=== PATIENT | female | born 1960 | race Caucasian/White ===

== ENCOUNTER 2023-05-18 11:18 | Observation (INO) | payer OTHER, SELFPAY ==
[2023-05-18] VITALS (38 sets, daily range): BP systolic 114–201; BP diastolic 64–110; PULSE 47–105; RESP 11–28; TEMP 36.1–36.8; O2SAT 92–100; BMI 23.4
--- NOTE | ~2023-05-18 | CT_ITS ---
EXAMINATION: CT abdomen pelvis w con DATE: 05/18/2023 14:37 INDICATION: Epigastric pain TECHNIQUE: Computed tomography (CT) of the abdomen and pelvis was performed with 100 mL Omnipaque-350 intravenous contrast. Automated exposure control and iterative reconstruction technique were employe d. The dose-length product was 316.51 mGy-cm. COMPARISON: None FINDINGS: Mild discoid atelectasis at the lingula and bilateral lower lobes. Heart size is normal. No pericardi al or pleural effusion. Small sliding-type hiatal hernia. Liver, gallbladder, spleen, pancreas, bilat eral adrenal glands and kidneys are normal. The appendix is mildly dilated with the fluid filled mid to distal appendix measuring up to 11 mm in maximal diameter with a tiny calcified appendicolith in t he more proximal appendix. There is subtle stranding in the periappendiceal fat suspicious for early acute appendicitis. There are few diverticula along the sigmoid colon without adjacent comparison to suggest diverticulitis. No bowel obstruction. Bladder, uterus and bilateral adnexa are unremarkable. No abscess or free intraperitoneal gas or fluid. Transitional thoracolumbar and lumbosacral segments with moderate lumbar spondylosis. Mild thoracolumbar levocurvature and lumbar dextrocurvature. IMPRESSION: 1. . Suspicious for acute appendicitis. Reviewed, dictated and finalized at location A.
[2023-05-18] MEDS: SODIUM CHLORIDE 0.9% IV 1,000 ML 999 ML IV CONT (12:25)
[2023-05-18] MEDS: ONDANSETRON INJ 4 MG/2 ML VIAL IV PUSH (12:26)
[2023-05-18] MEDS: Please add drug allergy info to patient profile. 1 EACH XX (12:26)
[2023-05-18] MEDS: MORPHINE SULFATE (*CRX) 4 MG/ML INJ IV PUSH (12:26)
[2023-05-18 12:57] LABS: Basophils Absolute Auto 0.1 K/mm3 (0.0-0.1); Basophils Percent Auto 0.3 % (0.2-1.2); Eosinophils Percent Auto 0.1 % (0-4.4); Hematocrit 51.6 % (37.0-47.0); Hemoglobin 16.9 g/dL (12.0-15.0); Immature Granulocyte Absolute 0.11 K/mm3 (0.00-0.031); Immature Granulocyte Percent A 0.6 % (0-0.5); Immature Platelet Fraction Pct 6.7 % (0.9-11.2); Lymphocytes Absolute Auto 1.12 K/mm3 (0.9-3.2); Lymphocytes Percent Auto 6.1 % (18.3-44.2); Mean Corpuscular HGB Conc 32.8 g/dl (32-36); Mean Corpuscular Hemoglobin 31.1 pg (26-34); Mean Platelet Volume 10.1 fl (7.4-10.4); Monocytes Absolute Auto 0.9 K/mm3 (0.1-0.6); Neutrophils Absolute Auto 16.3 K/mm3 (1.3-6.7); Neutrophils Percent Auto 87.9 % (45.5-73.1); Platelet Count Result 216 k/mm3 (150-375); Red Blood Count 5.43 M/mm3 (4.2-5.4); Red Cell Distribution Width 13.8 % (11.5-14.5); White Blood Count 18.5 K/mm3 (4.5-10.0)
[2023-05-18 13:48] LABS: Alanine Aminotransferase 34 U/L (6-35); Albumin Level 4.7 g/dL (3.5-5.1); Alkaline Phosphatase 135 U/L (38-126); Anion Gap 10 mmol/L (8-16); Aspartate Amino Transferase 41 U/L (14-36); Bilirubin,Total 0.6 mg/dL (0.2-1.3); Blood Urea Nitrogen 11 mg/dL (7-17); Calcium 9.1 mg/dL (8.4-10.2); Carbon Dioxide 21 mmol/L (22-30); Chloride 109 mmol/L (98-107); Estimated CRCL calculation 78 ml/min; Estimated Glomerular Filt Rate > 60; Glucose 121 mg/dL (65-110); Lipase 62 U/L (23-300); Potassium 3.3 mmol/L (3.4-5.0); Sodium 140 mmol/L (137-145)
[2023-05-18] MEDS: PROMETHAZINE HCL 25 MG/ML AMPUL 12.5 MG IV PUSH (13:52)
--- NOTE | 2023-05-18 14:04 | ED.GENADULT ---
HPI - General Adult General Chief complaint: Nausea/Vomiting/Diarrhea Stated complaint: N/V/D X1D Time Seen by Provider: 05/18/23 11:23 History of Present Illness HPI narrative: Patient is a 63-year-old female who presents ER with nausea and vomiting. Ongoing for 2 days. Associate with diarrhea beginning today. No known sick contacts. Patient has no antiemetics at home. Denies fevers or chills. No blood in emesis. Patient currently traveling from out of state. Related Data Home Medications Medication Instructions Recorded Confirmed atorvastatin 10 mg tablet 10 mg PO DAILY 05/18/23 05/18/23 levothyroxine 50 mcg tablet 50 mcg PO DAILY 05/18/23 05/18/23 losartan 50 mg tablet 50 mg PO DAILY 05/18/23 05/18/23 Allergies Allergy/AdvReac Type Severity Reaction Status Date / Time No Known Allergies Allergy Verified 05/18/23 16:38 Review of Systems Review of Systems: All systems reviewed & are unremarkable except as noted in HPI and below Constitutional: Constitutional: Denies chills, Reports fatigue and Denies fever(s) Cardiovascular: Cardiovascular: Denies chest pain, Denies rapid heart rate and Denies radiating jaw, neck or arm pain Respiratory: Respiratory: Denies cough and Denies dyspnea Gastrointestinal: Gastrointestinal: Reports abdominal pain, Reports diarrhea, Reports nausea and Reports vomiting Genitourinary: Genitourinary: Denies nocturia and Denies dysuria PMFSH Past Medical History Medical History (Updated 05/18/23 @ 19:26 by Song Jaramillo MD) Hyperlipidemia Hypertension Hypothyroidism BOBBY (obstructive sleep apnea) Social History Social History (Updated 05/18/23 @ 16:40 by Galen Gustafson DO) Smoking status: Former smoker Smoking end date: 05/18/23 Alcohol intake: current Alcohol use details: 4/ day Substance use type: marijuana Other substance usage details: daily Last use: 05/18/23 Exam Narrative: GENERAL: Uncomfortable-appearing, well-nourished, and in actively vomiting. HEAD: Normocephalic, atraumatic. EYES: PERRL and EOMI. ENT: Mucous membranes moist. NECK: Supple. CHEST: Clear to auscultation. No respiratory distress. HEART: Regular rate and rhythm. Normal peripheral pulses. ABDOMEN: Soft, nontender, nondistended. EXTREMITIES: Normal range of motion. No edema. SKIN: Warm, dry, no rash. NEURO: Alert and oriented x3. PSYCH: Normal mood and affect. Course Course Emergency Course: Patient found to have appendicitis. Discussed with patient family urgency of this matter. They were concerned because she is from out of state and that her insurance may not be good here. Discussed that she has medical event that requires emergent surgery and General surgery has been consulted, failure to treat this could result in significant decline in patient's health. The surgeon who recommends surgical removal of the appendix today. Patient will be started on IV antibiotics and she will go to the OR. Vital Signs Vital signs: Vital Signs Pulse Rate 50 L 05/18/23 11:20 Respiratory Rate 16 05/18/23 11:20 Blood Pressure 172/88 H 05/18/23 11:20 Pulse Oximetry 100 05/18/23 11:20 Oxygen Delivery Room Air 05/18/23 11:20 Temperature 97.7 F 05/18/23 17:44 Pulse Rate 79 05/18/23 19:10 Respiratory Rate 18 05/18/23 19:10 Blood Pressure 114/75 05/18/23 19:10 Pulse Oximetry 96 05/18/23 19:10 Oxygen Delivery Room Air 05/18/23 19:10 Oxygen Flow Rate 8 05/18/23 18:10 Medical Decision Making Vital Signs Vital Signs: Vital Signs Pulse Rate 50 L 05/18/23 11:20 Respiratory Rate 16 05/18/23 11:20 Blood Pressure 172/88 H 05/18/23 11:20 Pulse Oximetry 100 05/18/23 11:20 Oxygen Delivery Room Air 05/18/23 11:20 Temperature 97.7 F 05/18/23 17:44 Pulse Rate 79 05/18/23 19:10 Respiratory Rate 18 05/18/23 19:10 Blood Pressure 114/75 05/18/23 19:10 Pulse Oximetry 96 05/18/23 19:10 Oxygen
[2023-05-18 14:25] LABS: Appearance Urine Clear (Clear); Bacteria Urine None Seen /hpf; Bilirubin Urine Negative (Negative); Blood Urine Negative (Negative); Color Urine Yellow (Yellow); Glucose Urine UA Negative (Negative); Ketones Urine 3+ mg/dL (Negative); Leukocyte Esterase Ur 1+ LEU/UL (Negative); Need Manual Microscopic Reviewed; Nitrate Urine Negative (Negative); Non Pathogenic Casts 0-2; Protein Urine Negative (Negative); RBC Urine 0-2 /hpf (0-2); Specific Grav Ur 1.019 (1.001-1.035); Squamous Epithelial Cell Urine None seen /hpf (Few); Urobilinogen Urine 0.2 mg/dL (<2.0); WBC Urine 0-5 /hpf; pH Urine 5.5 (5.0-9.0)
[2023-05-18 14:26] LABS: Add Urine Microscopic? YES
--- NOTE | 2023-05-18 15:26 | PM.SD2 ---
Same Day Admit/Disch: HPI History of Present Illness Chief complaint: Nausea and vomiting Narrative: Silvina Stewart is a 63 year old female who came to the emergency room with a 2 day history of nausea and vomiting. She was noted initially to have diffuse abdominal tenderness and a white blood cell count of over 18,000. She was given some antiemetics and IV fluids. She then was felt to have right lower quadrant tenderness. She had a CT scan of the abdomen and pelvis that shows early acute appendicitis. She is taken to surgery now for laparoscopic appendectomy. Also no worthy is that the patient and her actually live in [place] but they spend quite a bit of time in this area because [place] is the patient's home town. They currently are living in a camper in a [place] near [place]. [facility] Past Medical History Medical History (Updated 05/18/23 @ 19:26 by Song Jaramillo MD) Hyperlipidemia Hypertension Hypothyroidism BOBBY (obstructive sleep apnea) Social History Social History (Updated 05/18/23 @ 16:40 by Galen Gustafson DO) Smoking status: Former smoker Smoking end date: 05/18/23 Alcohol intake: current Alcohol use details: Substance use: current Substance use type: marijuana Other substance usage details: daily Last use: 05/18/23 Living arrangements: with family Spiritual care concerns: No Same Day Admit/Disch: Med Pre-admit Medications Home Medications Medication Instructions Recorded Confirmed Type atorvastatin 10 mg tablet 10 mg PO DAILY 05/18/23 05/18/23 History levothyroxine 50 mcg tablet 50 mcg PO DAILY 05/18/23 05/18/23 History losartan 50 mg tablet 50 mg PO DAILY 05/18/23 05/18/23 History Review of Systems Review of Systems All systems reviewed & are unremarkable except as noted in HPI and below (HPI and those items noted below) Constitutional Constitutional: Denies chills and Denies fever(s) Cardiovascular Cardiovascular: Denies chest pain, Denies diaphoresis, Denies dyspnea and Denies paroxysmal nocturnal dyspnea Respiratory Respiratory: Denies chest congestion, Denies cough and Denies dyspnea Integumentary/Breasts Skin/Breast: Denies lesions and Denies rash Exam Const: General: no acute distress, alert, awake, tired appearing, uncomfortable and well nourished Orientation/consciousness: No confusion HENMT: Head: normocephalic and atraumatic Mouth: Yes Normal oral and palatal mucosa present Eyes: Conjunctivae: conjunctivae normal Pupils: Equal, round and reactive pupils present EOM: EOMs intact bilaterally Neck: Neck: normal visual inspection, no lymphadenopathy and nontender Resp: Effort & Inspection: normal respiratory effort Auscultation: clear to auscultation bilaterally Cardio: Rate: regular rate Rhythm: regular rhythm Heart sounds: no gallops, no murmurs and no rubs GI: Inspection: normal to inspection, non-distended, scaphoid and no visible herniation GI Palp: Yes abdominal tenderness (Right lower quadrant), Yes Soft to palpation, Yes Tenderness to palpation present (GI), Yes Guarding due to palpation present (GI), No Hepatomegaly present, No Splenomegaly present, No Hernia present, No Palpable mass present and No Ascites present Skin: Lesions: no lesions Rashes: no rashes Neuro: General: no focal motor deficits and CN's II-XI intact bilaterally Cranial nerves: Yes Equal, round and reactive pupils present, Yes Bilaterally intact EOM present, Yes facial symmetry and Yes Midline tongue present Speech: normal speech Motor exam (neuro): 5/5 motor strength present throughout and Motor abnormalities not present Extrem: General: no clubbing, cyanosis or edema and edema Psych: Affect: normal affect Thought process: Normal thought process present Insight: Good insight present (Psych) DS: Data Data Completed and Pending Labs on day of discharge: Labs from last 24 hours 05/18/23 05/18/23 05/18/23 13:47 13:32 12:43 WBC
[2023-05-18] MEDS: PIPERACILLN/TAZ 3.375GM/NS50ML 3.375 GM/50 ML BAG IVPB (16:13)
[2023-05-18] MEDS: LACTATED RINGERS 1,000 ML 30 ML IV CONT ×2 (16:30→17:44)
--- NOTE | 2023-05-18 16:38 | WPDANESEPPF ---
Anes - Initial Pre Proc Eval Procedure: Operation Date: 05/18/23 16:00 Proposed Procedures p Laparoscopic Appendectomy - Tito Gabriel MD Date/Time: 05/18/23 16:38 Surgeon: Tito Gabriel MD Pre Op Diagnosis: Nausea and vomiting Patient Data Age: 63 Gender: F Height: 1.7 m Weight: 68 kg Last Vital Signs Temp 36.2 C L 05/18/23 14:16 Pulse 56 L 05/18/23 15:46 Resp 26 H 05/18/23 15:31 BP 172/108 H 05/18/23 15:46 Pulse Ox 100 05/18/23 11:20 O2 Del Method Room Air 05/18/23 11:20 Allergies Allergy/AdvReac Type Severity Reaction Status Date / Time No Known Allergies Allergy Verified 05/18/23 16:38 Laboratory Tests 05/18/23 05/18/23 05/18/23 12:43 13:32 13:47 WBC 18.5 H K/mm3 (4.5-10.0) RBC 5.43 H M/mm3 (4.2-5.4) Hgb 16.9 H g/dL (12.0-15.0) Hct 51.6 H % (37.0-47.0) MCV 95.0 fl (80-100) MCH 31.1 pg (26-34) MCHC 32.8 g/dl (32-36) RDW 13.8 % (11.5-14.5) Plt Count 216 k/mm3 (150-375) MPV 10.1 fl (7.4-10.4) Immature Gran % (Auto) 0.6 H % (0-0.5) Neut % (Auto) 87.9 H % (45.5-73.1) Lymph % (Auto) 6.1 L % (18.3-44.2) [place] % (Auto) 5.0 % (2.6-8.5) Eos % (Auto) 0.1 % (0-4.4) Baso % (Auto) 0.3 % (0.2-1.2) Lymph # (Auto) 1.12 K/mm3 (0.9-3.2) [place] # (Auto) 0.9 H K/mm3 (0.1-0.6) Eos # (Auto) 0.0 K/mm3 (0-0.3) Baso # (Auto) 0.1 K/mm3 (0.0-0.1) Abs Immat Gran (auto) 0.11 H K/mm3 (0.00-0.031) Absolute Neuts (auto) 16.3 H K/mm3 (1.3-6.7) Absolute Nucleated RBC 0.0 K/mm3 (0.0-0.012) Nucleated RBC % 0.0 % (0.0-0.2) % Immature Plt Fraction 6.7 % (0.9-11.2) Sodium 140 mmol/L (137-145) Potassium 3.3 L mmol/L (3.4-5.0) Chloride 109 H mmol/L (98-107) Carbon Dioxide 21 L mmol/L (22-30) Anion Gap 10 mmol/L (8-16) BUN 11 mg/dL (7-17) Creatinine 0.60 L mg/dL (0.7-1.0) Estim Creat Clear Calc 78 ml/min Estimated GFR > 60 (59 - ) Glucose 121 H mg/dL (65-110) Calcium 9.1 mg/dL (8.4-10.2) Total Bilirubin 0.6 mg/dL (0.2-1.3) AST 41 H U/L (14-36) ALT 34 U/L (6-35) Alkaline Phosphatase 135 H U/L (38-126) Total Protein 8.0 g/dL (6.3-8.2) Albumin 4.7 g/dL (3.5-5.1) Lipase 62 U/L (23-300) Urine Color Yellow (Yellow) Urine Appearance Clear (Clear) Urine pH 5.5 (5.0-9.0) Ur Specific [place] 1.019 (1.001-1.035) Urine Protein Negative mg/dL (Negative) Urine Glucose (UA) Negative mg/dL (Negative) Urine Ketones 3+ H mg/dL (Negative) Ur Blood (Man) Negative (Negative) Urine Nitrate Negative (Negative) Urine Bilirubin Negative (Negative) Urine Urobilinogen 0.2 mg/dL (<2.0) Add Ur Microanalysis Reviewed Leukocyte Esterase Rfl 1+ H WALTER/UL (Negative) Urine RBC 0-2 /hpf (0-2) Urine WBC 0-5 /hpf Ur Squamous Epith Cells None seen /hpf (Few) Urine Bacteria None seen /hpf Urine Casts 0-2 Patient hx anesthesia problems: post op nausea/vomiting Family hx anesthesia problems: none Results Review: All pre-operative results and documents have been reviewed as part of the pre-operative evaluation. [facility] Past Medical History Medical History (Updated 05/18/23 @ 16:38 by Galen Gustafson DO) Hyperlipidemia Hypertension Hypothyroidism BOBBY (obstructive sleep apnea) Social History Social History (Updated 05/18/23 @ 16:40 by Galen Gustafson DO) Smoking status: Former smoker Smoking end date: 0
[2023-05-18] MEDS: SCOPOLAMINE 1.5 MG PATCH TRANSDERM (16:40)
--- NOTE | 2023-05-18 16:44 | WPDHPUPDATE1 ---
History and Physical Update Update Date/Time: 05/18/23 16:44 History and Physical has been reviewed, including an updated exam of the patient. There are NO changes in the patient's condition. Risks, benefits, and alternatives have been discussed and questions answered. Patient agrees to proceed with procedure.
[2023-05-18] MEDS: BUPIVACAINE/EPINEPHRINE 0.5% 30 ML VIAL 20 ML INFILTRATE (17:14)
--- NOTE | 2023-05-18 17:46 | W.PM.PROC2 ---
Procedure Note - Detailed Date of Procedure 05/18/23 Pre-op Diagnosis Acute appendicitis Post-op Diagnosis Same Procedure Performed Laparoscopic appendectomy Surgeon Tito Gabriel MD Editorial Cartoonist Jayce VALENTIN Anesthesia General and Local (0.5% Marcaine with epinephrine) Indications Patient has had 2 days of nausea and vomiting and also some abdominal pain in the lower abdomen. She came to the emergency room. She was tender in the right lower quadrant [place] [address] scan showed acute appendicitis. Findings She had early acute appendicitis. There was no evidence of a ruptured appendix. No other significant findings were appreciated. Description of Procedure Patient was taken to surgery and induced into general anesthesia. The abdomen is prepped and draped. Trocars were placed in the usual fashion using applied [employer] optical trocars and a 5 mm camera. A 10 11 port was was placed in the left lower quadrant. Patient was placed in Trendelenburg with the right-side elevated. The appendix was fairly easily located. It was anterior. There was fibrin is exudate around the area of the appendix. The appendix was elevated on its mesentery. I then used cautery and carefully dissected through the appendiceal mesentery dividing the appendiceal arteries in any other vessels encountered. The base of the appendix was skeletonized. A Vicryl endoloop was used in the appendix was ligated at its base. The appendix was then amputated just above the ligature. The mucosa of the appendiceal stump was cauterized. The appendix was placed immediately in an Endo-Catch bag and retrieved through the 10 11 left lower quadrant trocar. We then replaced the trocar reviewed the areas of dissection as well as the appendiceal stump. All looked good with no evidence of bleeding or other problems. I then used the Theo cone and an 0 Vicryl suture and closed the 10 11 left lower quadrant trocar site at the fascial level. We then evacuated CO2 and removed the trocars. Skin wounds were closed with subcuticular 4-0 Monocryl skin suture. The wounds were dressed with Exofin surgical adhesive. The patient was awakened and taken to recovery in good condition. Sponge and needle counts were correct x2. Estimated Blood Loss -5 Drains No Packing No Pathology Yes (Appendix) Complications No immediate complications Condition Stable Disposition PACU [facility] Billing Surgery - Charge Forward: Surgery Billing (Laparoscopic appendectomy)
--- NOTE | 2023-05-18 18:13 | SUR.PHASEI ---
1811: Simple mask removed.
--- NOTE | 2023-05-18 18:33 | SUR.PHASEI ---
1830: Patient meets PACU discharge criteria, unit bed unavailable at this time. Patient placed in extended recovery status.
--- NOTE | 2023-05-18 19:50 | ADMGEN ---
This patient, Silvina Stewart, was admitted to [facility] Surg Room 312-01. Patient/family oriented to hospital policies and general routines including ID bracelet, bed and alarms, visiting hours, pain management, procedures, bathroom and other care routines, personal items, smoking policy, room service/diet, and visiting hours. Information on how to activate the Rapid Response Team has been discussed. Patient/Family are encouraged to report perceived risks to care and to ask questions if they do not understand what they are told or what they should do.
[2023-05-18] MEDS: LACTATED RINGERS 1,000 ML 100 ML IV CONT (20:23)
[2023-05-18] MEDS: FAMOTIDINE 20 MG/2 ML VIAL IV PUSH (20:23)
[2023-05-18] MEDS: ENOXAPARIN 30 MG/0.3 ML SYRINGE SUB-Q (20:23)
[2023-05-19 00:54] VITALS: BP 107/61; PULSE 65; RESP 12; TEMP 36.9; O2SAT 94
[2023-05-19 05:00] VITALS: BP 109/69; PULSE 53; RESP 12; TEMP 36.3; O2SAT 96
[2023-05-19] MEDS: ACETAMINOPHEN 500 MG TABLET PO (05:34)
[2023-05-19 06:22] LABS: Hematocrit 43.2 % (37.0-47.0); Hemoglobin 14.4 g/dL (12.0-15.0); Mean Corpuscular HGB Conc 33.3 g/dl (32-36); Mean Corpuscular Hemoglobin 31.4 pg (26-34); Mean Corpuscular Volume 94.3 fl (80-100); Mean Platelet Volume 9.8 fl (7.4-10.4); Platelet Count Result 261 k/mm3 (150-375); Red Blood Count 4.58 M/mm3 (4.2-5.4); White Blood Count 16.1 K/mm3 (4.5-10.0)
[2023-05-19 06:36] LABS: Anion Gap 7 mmol/L (8-16); Blood Urea Nitrogen 8 mg/dL (7-17); Carbon Dioxide 28 mmol/L (22-30); Chloride 102 mmol/L (98-107); Estimated CRCL calculation 78 ml/min; Estimated Glomerular Filt Rate > 60; Glucose 110 mg/dL (65-110); Potassium 3.6 mmol/L (3.4-5.0); Sodium 137 mmol/L (137-145)
[2023-05-19] MEDS: ENOXAPARIN 30 MG/0.3 ML SYRINGE SUB-Q (08:36)
[2023-05-19] MEDS: LOSARTAN POTASSIUM 50 MG TABLET PO (08:36)
[2023-05-19] MEDS: FAMOTIDINE 20 MG/2 ML VIAL IV PUSH (08:36)
[2023-05-19] MEDS: ATORVASTATIN 10 MG TABLET PO (08:36)
--- NOTE | 2023-05-19 09:07 | WPDANESPN ---
Anes - Prog Note Post-Op Date/Time: 05/19/23 09:07 Cardiovascular status: normal Respiratory status: normal Airway patency: baseline Mental status: baseline Post-Op hydration status: normal Vital Signs: Last Vital Signs Temp 36.3 C L 05/19/23 05:00 Pulse 53 L 05/19/23 05:00 Resp 12 05/19/23 05:00 BP 109/69 05/19/23 05:00 Pulse Ox 96 05/19/23 05:00 O2 Del Method Room Air 05/19/23 08:43 O2 Flow Rate 8 05/18/23 18:10 Pain Score (VAS): 09/30 I/O: Intake & Output 05/18/23 05/19/23 05/19/23 23:59 07:59 15:59 Intake Total 900 Balance 900 Laboratory Tests 05/19/23 06:14 05/19/23 06:14 05/18/23 05/18/23 05/18/23 12:43 13:32 13:47 WBC 18.5 H RBC 5.43 H Hgb 16.9 H Hct 51.6 H MCV 95.0 MCH 31.1 MCHC 32.8 RDW 13.8 Plt Count 216 MPV 10.1 Immature Gran % (Auto) 0.6 H Neut % (Auto) 87.9 H Lymph % (Auto) 6.1 L [place] % (Auto) 5.0 Eos % (Auto) 0.1 Baso % (Auto) 0.3 Lymph # (Auto) 1.12 [place] # (Auto) 0.9 H Eos # (Auto) 0.0 Baso # (Auto) 0.1 Abs Immat Gran (auto) 0.11 H Absolute Neuts (auto) 16.3 H Absolute Nucleated RBC 0.0 Nucleated RBC % 0.0 % Immature Plt Fraction 6.7 Sodium 140 Potassium 3.3 L Chloride 109 H Carbon Dioxide 21 L Anion Gap 10 BUN 11 Creatinine 0.60 L Estim Creat Clear Calc 78 Estimated GFR > 60 Glucose 121 H Calcium 9.1 Total Bilirubin 0.6 AST 41 H ALT 34 Alkaline Phosphatase 135 H Total Protein 8.0 Albumin 4.7 Lipase 62 Urine Color Yellow Urine Appearance Clear Urine pH 5.5 Ur Specific [place] 1.019 Urine Protein Negative Urine Glucose (UA) Negative Urine Ketones 3+ H Ur Blood (Man) Negative Urine Nitrate Negative Urine Bilirubin Negative Urine Urobilinogen 0.2 Add Ur Microanalysis Reviewed Leukocyte Esterase Rfl 1+ H Urine RBC 0-2 Urine WBC 0-5 Ur Squamous Epith Cells None seen Urine Bacteria None seen Urine Casts 0-2 05/19/23 06:14 WBC 16.1 H RBC 4.58 Hgb 14.4 Hct 43.2 MCV 94.3 MCH 31.4 MCHC 33.3 RDW 14.0 Plt Count 261 MPV 9.8 Immature Gran % (Auto) Neut % (Auto) Lymph % (Auto) [place] % (Auto) Eos % (Auto) Baso % (Auto) Lymph # (Auto) [place] # (Auto) Eos # (Auto) Baso # (Auto) Abs Immat Gran (auto) Absolute Neuts (auto) Absolute Nucleated RBC Nucleated RBC % % Immature Plt Fraction Sodium 137 Potassium 3.6 Chloride 102 Carbon Dioxide 28 Anion Gap 7 L BUN 8 Creatinine 0.60 L Estim Creat Clear Calc 78 Estimated GFR > 60 Glucose 110 Calcium 9.0 Total Bilirubin AST ALT Alkaline Phosphatase Total Protein Albumin Lipase Urine Color Urine Appearance Urine pH Ur Specific [place] Urine Protein Urine Glucose (UA) Urine Ketones Ur Blood (Man) Urine Nitrate Urine Bilirubin Urine Urobilinogen Add Ur Microanalysis Leukocyte Esterase Rfl Urine RBC Urine WBC Ur Squamous Epith Cells Urine Bacteria Urine Casts Post-procedural complaints: none Patient Feedback: Patient satisfied with anesthetic care.
== END 2023-05-19 10:39 | disposition home or self-care (01) ==
LOC: ANHED 15:22 → ANHSURGERY 15:27 → ANH3MEDSUR 19:26
PROVIDERS: Admitting Provider Surgery; Emergency Provider Emergency Medicine; Visit Provider Surgery
PROC: 0DTJ4ZZ Resection of Appendix, Percutaneous Endoscopic Approach (ICD-10-PCS; CPT 44970; principal; 2023-05-18 16:00)
DX: K35.80 Unspecified acute appendicitis (principal); K44.9 Diaphragmatic hernia without obstruction or gangrene; J98.11 Atelectasis; D72.829 Elevated white blood cell count, unspecified; E78.5 Hyperlipidemia, unspecified; E03.9 Hypothyroidism, unspecified; I10 Essential (primary) hypertension; G47.33 Obstructive sleep apnea (adult) (pediatric); Z87.891 Personal history of nicotine dependence; F10.90 Alcohol use, unspecified, uncomplicated; F12.90 Cannabis use, unspecified, uncomplicated
CPT/HCPCS: 44970; 36415; 74177; 80048; 80053; 81001; 83690; 85025; 85027; 85055; 88304; 96361; 96365; 96375; 99285; A9270; G0378; J0330; J1650; J2250; J2270; J2405; J2543; J2550; J2704; J3010; J7030; J7120; Q9967

== ENCOUNTER 2023-05-20 06:42 | Observation (INO) | payer OTHER, SELFPAY ==
[2023-05-20] VITALS (29 sets, daily range): BP systolic 130–208; BP diastolic 80–117; PULSE 52–73; RESP 12–30; TEMP 35.7–36.8; O2SAT 89–100; BMI 23.7
--- NOTE | ~2023-05-20 | CT_ITS ---
EXAMINATION: CT abdomen pelvis w con INDICATION: Postoperative nausea and vomiting, recent appendectomy TECHNIQUE: Computed tomographic images of the abdomen and pelvis were obtained after the administrati on of 100 cc of Omnipaque 350 intravenous contrast. The dose-length product (DLP) was 342.15 mGy-cm. Automated exposure control and iterative reconstruction technique were employed. COMPARISON: 05/18/2023 FINDINGS: Minimal dependent atelectasis is present in the lung bases. The heart size is normal. There are small pleural effusions. There is a small sliding hiatal hernia. The spleen, pancreas, and adren al glands are normal. There is moderate pericholecystic inflammatory change. There is moderate peripo rtal edema of the liver. The kidneys are unremarkable. No pathologically enlarged abdominal or pelvic lymph nodes are identified. There are changes of interval appendectomy. Subtle right lower quadrant inflammatory changes and minimal fluid are consistent with recent surgery. No free intraperitoneal ga s or evidence of bowel obstruction. There is moderate lumbar spondylosis. IMPRESSION: 1. Moderate pericholecystic inflammatory change and periportal edema which could reflect cholecystiti s. Consider correlation with right upper quadrant ultrasound and/or nuclear hepatobiliary scan. 2. Changes of interval appendectomy. Reviewed, dictated and finalized at location F. IMPRESSION: 1. Moderate pericholecystic inflammatory change and periportal edema which coul d reflect cholecystitis. Consider correlation with right upper quadrant ultraso und and/or nuclear hepatobiliary scan. 2. Changes of interval appendectomy.
--- NOTE | ~2023-05-20 | US_ITS ---
EXAMINATION: US abdomen limited DATE: 05/20/2023 10:55 INDICATION: Right upper quadrant pain TECHNIQUE: Multiple grayscale and Doppler ultrasound images of the abdomen were obtained. COMPARISON: CT from today FINDINGS: The head, body, and tail of the pancreas are normal. Periportal edema is noted as seen on t he comparison CT. The liver is otherwise normal with normal echogenicity and echotexture. No surface nodularity. Normal hepatopetal flow in the main portal vein. There are mild hyperemia and thickening of the gallbladder wall. The normal common bile duct measures 2 mm. There was no sonographic Foster s ign. IMPRESSION: 1. Mild wall thickening and hyperemia of the gallbladder wall which could reflect cholecystitis. Reviewed, dictated and finalized at location F. IMPRESSION: 1. Mild wall thickening and hyperemia of the gallbladder wall which could refle ct cholecystitis.
--- NOTE | 2023-05-20 07:24 | PC.NURSE ---
Report to JUANA Mcclellan
--- NOTE | 2023-05-20 07:26 | ED.NAVMDI ---
HPI - Nausea/Vomiting/Diarrhea General Chief complaint: Nausea/Vomiting/Diarrhea Stated complaint: post op nausea Time Seen by Provider: 05/20/23 07:26 Source: patient Limitations: no limitations History of Present Illness HPI Narrative: 63 years old white female came to the emergency room with severe nausea and vomiting and diffuse abdominal pain 5. Patient is a status post appendectomy May 18. Patient is not on narcotic. Patient used to smoke marijuana daily, last use 1 day prior to the surgery. She denies any fever, diarrhea, constipation. Related Data Home Medications Medication Instructions Recorded Confirmed atorvastatin 10 mg tablet 10 mg PO DAILY 05/18/23 05/18/23 levothyroxine 50 mcg tablet 50 mcg PO DAILY 05/18/23 05/18/23 losartan 50 mg tablet 50 mg PO DAILY 05/18/23 05/18/23 Allergies Allergy/AdvReac Type Severity Reaction Status Date / Time No Known Allergies Allergy Verified 05/20/23 07:10 Review of Systems Review of Systems: All systems reviewed & are unremarkable except as noted in HPI and below PMFSH Past Medical History Medical History (Updated 05/20/23 @ 11:55 by Mario Craig MD) Hyperlipidemia Hypertension Hypothyroidism BOBBY (obstructive sleep apnea) Social History Social History (Updated 05/18/23 @ 16:40 by Galen Gustafson DO) Smoking status: Former smoker Smoking end date: 05/18/23 Alcohol intake: current Alcohol use details: Substance use: current Substance use type: marijuana Other substance usage details: daily Last use: 05/18/23 Living arrangements: with family Spiritual care concerns: No Exam Narrative: General appearance: Well-developed, well-nourished Skin: Normal color Head: Normocephalic, nontraumatic Eyes: Clear conjunctiva ENT: Oropharynx normal, ears normal, nose normal Neck: Supple, nontender Chest and respiratory: Airway patent, no respiratory distress, no accessory muscle use Heart: Regular rate/rhythm Abdomen: Soft, mild diffuse tenderness mainly at the surgical site, surgical wound clean and dry, no organomegaly, quiet bowel sounds Vascular: Normal peripheral pulses, normal capillary refill. Musculoskeletal: Normal range of motion, nontender back Neurologic: Alert and oriented ?3, [employer] is normal as tested, no gross motor deficit Course Vital Signs Vital signs: Vital Signs Pulse Rate 65 05/20/23 06:59 Respiratory Rate 19 09/30/23 06:59 Pulse Oximetry 100 05/20/23 06:59 Pulse Rate 64 05/20/23 11:41 Respiratory Rate 20 05/20/23 11:41 Blood Pressure 183/91 H 05/20/23 11:41 Pulse Oximetry 100 05/20/23 11:41 MDM - Nausea/Vomiting/Diarrhea MDM Narrative Medical decision making narrative: 63 years old white female came to the emergency room by private car with severe nausea and vomiting started at 5:30 AM. Patient status post appendectomy 2 days ago, not on narcotics, was doing okay over the last 48 hours and nausea vomiting started after waking up from sleep with increased abdominal pain. She denies any fever, diarrhea or constipation. Patient could not take her medication today, including losartan for hypertension Physical examination remarkable for severe dry heaving, vomiting and nausea and diffuse abdominal pain. Differential diagnosis include postop complication, medication induced vomiting, obstruction, urinary tract infection. Work-up today showed WBC of 11.5, elevated liver enzymes which is double the number of 2 days ago, normal bilirubin, potassium of 3.0, unremarkable urine analysis, CT abdomen and pelvis with IV contrast showed possible cholecystitis, changes of interval appendectomy,
[2023-05-20] MEDS: SODIUM CHLORIDE 0.9% IV 1,000 ML 999 ML IV CONT ×3 (07:29→11:56)
[2023-05-20] MEDS: ONDANSETRON INJ 4 MG/2 ML VIAL 8 MG IV PUSH (07:30)
[2023-05-20] MEDS: LORazepam INJ (*CRX) 2 MG/ML VIAL 1 MG IV PUSH (07:34)
[2023-05-20 08:31] LABS: Basophils Percent Auto 0.2 % (0.2-1.2); Hematocrit 45.6 % (37.0-47.0); Hemoglobin 15.2 g/dL (12.0-15.0); Immature Granulocyte Absolute 0.06 K/mm3 (0.00-0.031); Immature Granulocyte Percent A 0.5 % (0-0.5); Lymphocytes Absolute Auto 0.94 K/mm3 (0.9-3.2); Lymphocytes Percent Auto 8.2 % (18.3-44.2); Mean Corpuscular HGB Conc 33.3 g/dl (32-36); Mean Corpuscular Hemoglobin 31.4 pg (26-34); Mean Corpuscular Volume 94.2 fl (80-100); Mean Platelet Volume 9.8 fl (7.4-10.4); Monocytes Absolute Auto 0.7 K/mm3 (0.1-0.6); Monocytes Percent Auto 6.5 % (2.6-8.5); Neutrophils Absolute Auto 9.7 K/mm3 (1.3-6.7); Neutrophils Percent Auto 84.6 % (45.5-73.1); Platelet Count Result 207 k/mm3 (150-375); Red Blood Count 4.84 M/mm3 (4.2-5.4); Red Cell Distribution Width 13.7 % (11.5-14.5); White Blood Count 11.5 K/mm3 (4.5-10.0)
[2023-05-20 09:17] LABS: Appearance Urine Clear (Clear); Bilirubin Urine Negative (Negative); Blood Urine Negative (Negative); Color Urine Yellow (Yellow); Glucose Urine UA Negative (Negative); Ketones Urine 2+ mg/dL (Negative); Leukocyte Esterase Ur Negative LEU/UL (Negative); Nitrate Urine Negative (Negative); Protein Urine Negative (Negative); Specific Grav Ur 1.008 (1.001-1.035); Urobilinogen Urine 0.2 mg/dL (<2.0)
[2023-05-20 09:32] LABS: Add Urine Microscopic? NO
[2023-05-20 09:52] LABS: Estimated CRCL calculation 78 ml/min; Estimated Glomerular Filt Rate > 60
[2023-05-20 10:02] LABS: Alanine Aminotransferase 72 U/L (6-35); Albumin Level 4.8 g/dL (3.5-5.1); Alkaline Phosphatase 112 U/L (38-126); Anion Gap 12 mmol/L (8-16); Aspartate Amino Transferase 80 U/L (14-36); Blood Urea Nitrogen 11 mg/dL (7-17); Calcium 8.7 mg/dL (8.4-10.2); Carbon Dioxide 21 mmol/L (22-30); Chloride 102 mmol/L (98-107); Estimated CRCL calculation 78 ml/min; Estimated Glomerular Filt Rate > 60; Glucose 102 mg/dL (65-110); Lipase 59 U/L (23-300); Sodium 135 mmol/L (137-145)
[2023-05-20] MEDS: diphenhydrAMINE HCl INJ 50 MG/ML VIAL 25 MG IV PUSH (11:41)
[2023-05-20] MEDS: PIPERACILLN/TAZ 3.375GM/NS50ML 3.375 GM/50 ML BAG IVPB ×2 (11:42→17:49)
[2023-05-20] MEDS: METOCLOPRAMIDE HCL 10 MG TABLET PO (11:42)
[2023-05-20] MEDS: HYDROmorphone HCL INJ (*CRX) 1 MG/ML SYR 0.5 MG IV PUSH ×2 (11:42→17:49)
[2023-05-20] MEDS: LABETALOL HCL INJ 100 MG/20 ML VIAL 20 MG IV PUSH (11:56)
[2023-05-20] MEDS: KCL 40 MEQ/WATER 100 ML 100 ML 25 ML IVPB (13:24)
[2023-05-20] MEDS: LACTATED RINGERS 1,000 ML 150 ML IV CONT ×2 (13:24→20:56)
[2023-05-20] MEDS: ONDANSETRON INJ 4 MG/2 ML VIAL IV PUSH ×3 (14:06→21:17)
--- NOTE | 2023-05-20 17:55 | PM.IMHP ---
H&P: HPI History of Present Illness Date/Time: 05/20/23 17:55 Chief Complaint: Abdominal pain and nausea and vomiting Narrative: patient is a 63-year-old female who 2 days ago underwent a laparoscopic appendectomy by Dr. Tito Gabriel. Review of the operative notes shows that the appendectomy as per a straightforward. She was discharged from the hospital is doing fairly well until earlier today when she started having severe nausea and multiple episodes of emesis. This then resulted having more abdominal pain as well. Her main complaint right now is persistent nausea. She has not had a bowel movement since she left the hospital. In the emergency room [place] [id number]. CT scan abdomen pelvis was performed showing postoperative changes in the right lower quadrant the abdomen. There was some questionable thickening of the gallbladder wall with out gallstones noted suggestive of possible cholecystitis. Abdominal ultrasound was then performed showing some mild gallbladder wall thickening. No gallstones were noted. Liver enzymes were normal. Common bile duct is normal at 2 to 3 mm. She was admitted to the surgical floor for IV fluid hydration and IV antiemetic medications. Review of Systems Review of Systems: The remainder of the review of systems to include constitutional, HEENT, cardiovascular, respiratory, GI, , integumentary, musculoskeletal, endocrine, immunologic, hematologic, psychiatric, and neurologic are all negative except for which is mentioned above in the HPI. FOR[facility]LY [facility] Past Medical History Medical History Hyperlipidemia Hypertension Hypothyroidism BOBBY (obstructive sleep apnea) Social History Social History Smoking status: Former smoker Smoking end date: 05/18/23 Alcohol intake: current Drinks per week: 28 Alcohol use details: 4/beers day Substance use: current Substance use type: marijuana Other substance usage details: daily Last use: 05/18/23 Lack of Transportation: No Lack of Food: Never True Current Housing: I Have Housing Concerned About Future Housing: No Difficulty Paying Gas/Electric Bills: No Difficulty Paying for Meds: No Currently Unemployed: No Education: Bachelor's Degree Difficulty w/ Childcare or Family Care: No Living arrangements: with family Spiritual care concerns: No Meds Home Medications and Allergies Home Medications Medication Instructions Recorded Confirmed Type atorvastatin 10 mg tablet 10 mg PO DAILY 05/18/23 05/20/23 History levothyroxine 50 mcg tablet 50 mcg PO DAILY 05/18/23 05/20/23 History losartan 50 mg tablet 50 mg PO DAILY 05/18/23 05/20/23 History ibuprofen 600 mg tablet 600 mg PO Q6H PRN pain #14 tabs 05/19/23 05/20/23 Rx calcium carb-vit D3-minerals 600 1 tablet PO DAILY 05/20/23 05/20/23 History mg calcium-400 unit tablet cetirizine 10 mg tablet (Zyrtec) 10 mg PO DAILY 05/20/23 05/20/23 History fluticasone propionate 50 1 spray intranasal DAILY 05/20/23 05/20/23 History mcg/actuation nasal spray,suspension multivitamin with minerals-folic 1 tablet PO DAILY 05/20/23 05/20/23 History acid 0.4 mg tablet sumatriptan succinate 50 mg tablet 50 mg PO PRN PRN Migraine Headache 05/20/23 05/20/23 History Allergies Allergy/AdvReac Type Severity Reaction Status Date / Time No Known Allergies Allergy Verified 05/20/23 07:10 Vital Signs Vital Signs - 24 hr 05/20/23 06:59 05/20/23 07:15 05/20/23 07:17 Temperature Pulse Rate 65 71 72 Respiratory Rate 19 24 H 22 H Blood Pressure 208/94 H Pulse Oximetry 100 100 100 Oxygen Delivery 05/20/23 07:30 05/20/23 07:32 05/20/23 07:47 Temperature Pulse Rate 61 69 60 Respiratory Rate 25 H 29 H 30 H Blood Pressure 205/102 H 208/99 H Pulse Oximetry 100 100 97 Oxygen Delivery 05/20/23 08:00 05/20/23 08:03 05/20/23 08:28
[2023-05-20 18:45] LABS: Alanine Aminotransferase 67 U/L (6-35); Albumin Level 4.5 g/dL (3.5-5.1); Alkaline Phosphatase 107 U/L (38-126); Anion Gap 10 mmol/L (8-16); Aspartate Amino Transferase 75 U/L (14-36); Bilirubin,Total 0.8 mg/dL (0.2-1.3); Blood Urea Nitrogen 6 mg/dL (7-17); Calcium 8.6 mg/dL (8.4-10.2); Carbon Dioxide 22 mmol/L (22-30); Chloride 100 mmol/L (98-107); Estimated CRCL calculation 92 ml/min; Estimated Glomerular Filt Rate > 60; Glucose 106 mg/dL (65-110); Potassium 3.8 mmol/L (3.4-5.0); Sodium 132 mmol/L (137-145)
[2023-05-20] MEDS: PROMETHAZINE HCL 25 MG/ML AMPUL 12.5 MG IV PUSH (20:29)
[2023-05-20] MEDS: FAMOTIDINE 20 MG/2 ML VIAL IV PUSH (20:29)
[2023-05-20] MEDS: SUMAtriptan SUCCINATE 25 MG TABLET 50 MG PO (21:16)
[2023-05-20] MEDS: LOSARTAN POTASSIUM 50 MG TABLET PO (21:17)
[2023-05-21] MEDS: PIPERACILLN/TAZ 3.375GM/NS50ML 3.375 GM/50 ML BAG IVPB ×2 (00:36→05:38)
[2023-05-21] MEDS: PROMETHAZINE HCL 25 MG/ML AMPUL 12.5 MG IV PUSH ×3 (00:36→15:18)
[2023-05-21] MEDS: ONDANSETRON INJ 4 MG/2 ML VIAL IV PUSH ×3 (01:25→10:11)
[2023-05-21] MEDS: LACTATED RINGERS 1,000 ML 150 ML IV CONT ×2 (03:38→10:10)
[2023-05-21 06:00] VITALS: BP 169/101; PULSE 70; RESP 16; TEMP 36.6; O2SAT 97
[2023-05-21 06:58] LABS: Basophils Percent Auto 0.2 % (0.2-1.2); Eosinophils Percent Auto 0.1 % (0-4.4); Hemoglobin 16.7 g/dL (12.0-15.0); Immature Granulocyte Absolute 0.04 K/mm3 (0.00-0.031); Immature Granulocyte Percent A 0.4 % (0-0.5); Lymphocytes Percent Auto 9.1 % (18.3-44.2); Mean Corpuscular HGB Conc 33.4 g/dl (32-36); Mean Corpuscular Hemoglobin 30.9 pg (26-34); Mean Corpuscular Volume 92.6 fl (80-100); Mean Platelet Volume 9.8 fl (7.4-10.4); Monocytes Percent Auto 8.8 % (2.6-8.5); Neutrophils Absolute Auto 8.9 K/mm3 (1.3-6.7); Neutrophils Percent Auto 81.4 % (45.5-73.1); Platelet Count Result 268 k/mm3 (150-375); Red Cell Distribution Width 13.5 % (11.5-14.5); White Blood Count 10.9 K/mm3 (4.5-10.0)
[2023-05-21 07:22] LABS: Alanine Aminotransferase 61 U/L (6-35); Albumin Level 4.7 g/dL (3.5-5.1); Alkaline Phosphatase 108 U/L (38-126); Anion Gap 12 mmol/L (8-16); Aspartate Amino Transferase 69 U/L (14-36); Bilirubin,Total 1.2 mg/dL (0.2-1.3); Blood Urea Nitrogen 5 mg/dL (7-17); Calcium 9.3 mg/dL (8.4-10.2); Carbon Dioxide 27 mmol/L (22-30); Chloride 96 mmol/L (98-107); Estimated CRCL calculation 78 ml/min; Estimated Glomerular Filt Rate > 60; Glucose 94 mg/dL (65-110); Potassium 3.4 mmol/L (3.4-5.0); Sodium 135 mmol/L (137-145)
[2023-05-21] MEDS: LOSARTAN POTASSIUM 50 MG TABLET PO (08:55)
[2023-05-21] MEDS: FAMOTIDINE 20 MG/2 ML VIAL IV PUSH (08:55)
[2023-05-21] MEDS: ATORVASTATIN 10 MG TABLET PO (08:55)
[2023-05-21 10:22] VITALS: O2SAT 94
[2023-05-21 14:00] VITALS: BP 160/80; PULSE 65; RESP 12; TEMP 36.6; O2SAT 100
[2023-05-21] MEDS: HYDROmorphone HCL INJ (*CRX) 1 MG/ML SYR 0.5 MG IV PUSH (15:19)
[2023-05-21] MEDS: FAMOTIDINE 10 MG TABLET PO (21:13)
[2023-05-21] MEDS: LACTATED RINGERS 1,000 ML 75 ML IV CONT (21:13)
[2023-05-21 21:38] VITALS: BP 104/90; PULSE 107; RESP 16; TEMP 36.4; O2SAT 98
[2023-05-22] VITALS (7 sets, daily range): BP systolic 132–214; BP diastolic 88–135; PULSE 65–104; RESP 16–20; TEMP 35.8–36.7; O2SAT 99–100
[2023-05-22] MEDS: LEVOTHYROXINE SODIUM 50 MCG TABLET PO (06:30)
[2023-05-22] MEDS: FLUTICASONE PROPIONATE 0.05% NA SPR 16 GM BTL (*BKC) 1 SPRAY NASAL (08:37)
[2023-05-22] MEDS: ATORVASTATIN 10 MG TABLET PO (08:38)
[2023-05-22] MEDS: LOSARTAN POTASSIUM 50 MG TABLET PO (08:38)
[2023-05-22] MEDS: FAMOTIDINE 10 MG TABLET PO (08:38)
[2023-05-22] MEDS: THERAPEUTIC MULTIVITAMINS/MINERALS TAB (*BKC) 1 TABLET PO (08:38)
[2023-05-22] MEDS: LORATADINE 10 MG TABLET PO (08:38)
[2023-05-22] MEDS: SUMAtriptan SUCCINATE 25 MG TABLET 50 MG PO (12:35)
[2023-05-22] MEDS: PROMETHAZINE HCL 25 MG/ML AMPUL 12.5 MG IV PUSH (13:05)
[2023-05-22] MEDS: LACTATED RINGERS 1,000 ML 75 ML IV CONT (13:05)
[2023-05-22] MEDS: HYDROmorphone HCL INJ (*CRX) 1 MG/ML SYR 0.5 MG IV PUSH ×2 (13:11→19:13)
--- NOTE | 2023-05-22 13:15 | PM.PNGS ---
Progress Note: A&P Assessment and Plan (1) Vomiting: Qualifiers: Nausea presence: with nausea Vomiting type: unspecified Qualified Code(s): R11.2 - Nausea with vomiting, unspecified Code(s): R11.10 - Vomiting, unspecified Status: Acute Assessment and Plan: Intractable nausea and vomiting 2 days after laparoscopic appendectomy. CT and RUQ US showing mild gallbladder wall thickening, no gallstones. [place] initially this may be related to an ileus and less likely cholecystitis. She was tolerating a low-fat diet this morning, but developed more nausea and dry heaving this afternoon. Patient feels it is related to a migraine. Will back her off to a liquid diet this afternoon. Continue IV fluids and antiemetics. No labs this morning. Will get labs now and repeat in the morning. (2) Status post appendectomy: Code(s): Z90.49 - Acquired absence of other specified parts of digestive tract Status: Acute Plan I have discussed the patient's case and plan of care with Dr. Cooper. Subjective Subjective Date/Time Seen: 05/22/23 11:15 Patient reports: feels better, voiding w/o difficulty, flatus, no bowel movement and afebrile Interval history: This is a 63-year-old woman who underwent laparoscopic appendectomy on 05/18/[address] Gabriel. Surgery appeared straight forward and she was discharged home the same day. She developed nausea and vomiting at home, and return to the ER postop day 2. Workup in the ED showed CT evidence of possible cholecystitis. She was admitted for IV fluid hydration and antiemetics. Chart reviewed. She was advanced to a low-fat diet this morning for breakfast. She ate oatmeal and had liquids, and reportedly tolerated this well. She reports very minimal abdominal pain near her suprapubic incision. Denies any right upper quadrant abdominal pain or epigastric pain. She denies any nausea or vomiting overnight or this morning. She is feeling much better than when she came into the ER. No other complaints at the time of my exam. I did have a call from nursing staff this afternoon reporting the patient moved her bowels. She then reported having a headache and feeling like it was a migraine. She then developed nausea and had vomiting after lunch. After the vomiting, her abdominal pain seemed to get worse. She has been given IV Dilaudid and promethazine. Exam Const: General: comfortable, no acute distress and awake Orientation/consciousness: patient oriented x3 GI: Inspection: non-distended and incision (incisions dry and intact with minimal localized bruising) GI Palp: Yes Soft to palpation, Yes Tenderness to palpation present (GI) (only tenderness is at suprapubic incision) and No Hernia present Auscultation: normal bowel sounds Neuro: General: moves all extremities and no focal motor deficits Extrem: General: no calf tenderness and no edema Psych: Mental Status: mental status grossly normal Insight: Good insight present (Psych) Objective Data Vital Signs Vital Signs: Vital Signs - 24 hr 05/21/23 14:00 05/21/23 20:00 05/21/23 21:38 Temperature 97.8 F 97.5 F L Pulse Rate 65 107 H Respiratory Rate 12 16 Blood Pressure 160/80 H 104/90 Pulse Oximetry 100 98 Oxygen Delivery Room Air 05/22/23 06:00 05/22/23 08:00 Temperature 98.0 F Pulse Rate 65 Respiratory Rate 16 Blood Pressure 132/88 Pulse Oximetry 99 Oxygen Delivery Room Air Intake/Output Intake/Output: Intake & Output 05/19/23 05/20/23 05/21/23 05/22/23 23:59 23:59 23:59 23:59 Intake Total 4200 3340 2030 Output Total 100 Balance 4100 3340 2030 Meds/Results Medications: Active Medications Generic Name Dose Route Start Last Admin Trade Name Freq PRN Reason Stop Dose Admin Atorvastatin Calcium 10 mg 05/21/23 09:00 05/22/23 08:38 Atorvastatin 10 Mg Tablet PO 10 mg DAILY PETRA Administration Calcium Carbonate 500 mg 05/21/23 09:00 05/22/23 08:38
[2023-05-22 15:03] LABS: Alanine Aminotransferase 54 U/L (6-35); Albumin Level 4.2 g/dL (3.5-5.1); Alkaline Phosphatase 102 U/L (38-126); Anion Gap 15 mmol/L (8-16); Aspartate Amino Transferase 54 U/L (14-36); Bilirubin,Total 1.2 mg/dL (0.2-1.3); Blood Urea Nitrogen 10 mg/dL (7-17); Calcium 9.8 mg/dL (8.4-10.2); Carbon Dioxide 21 mmol/L (22-30); Chloride 97 mmol/L (98-107); Estimated CRCL calculation 68 ml/min; Estimated Glomerular Filt Rate > 60; Glucose 101 mg/dL (65-110); Potassium 2.7 mmol/L (3.4-5.0); Sodium 133 mmol/L (137-145)
[2023-05-22] MEDS: POTASSIUM CHLORIDE INJ 40 MEQ in SODIUM CHLORIDE 0.9% IV 500 ML 130 MEQ IVPB (17:51)
[2023-05-22] MEDS: KCL 40 MEQ/0.9% SOD CHL 1,000 ML 100 ML IV CONT (17:51)
--- NOTE | 2023-05-22 19:31 | PC.NURSE ---
called surgery exchange pt stating thinks she is having withdraws from alcohol and inquiring about starting cwai protocols.
--- NOTE | 2023-05-22 19:51 | PC.NURSE ---
called to inform THAI Boucher of hospitalist consult
--- NOTE | 2023-05-22 20:18 | PC.NURSE ---
spoke with MD Garsia started ativan and ciaw orders and consulted THAI leonard for hospitalist consult
[2023-05-22] MEDS: LORazepam INJ (*CRX) 2 MG/ML VIAL IV PUSH (20:36)
[2023-05-23] VITALS (9 sets, daily range): BP systolic 97–144; BP diastolic 49–107; PULSE 86–113; RESP 16–20; TEMP 35.9–36.6; O2SAT 96–98
[2023-05-23] MEDS: LEVOTHYROXINE SODIUM 50 MCG TABLET PO (05:43)
[2023-05-23 08:29] LABS: Hematocrit 50.2 % (37.0-47.0); Hemoglobin 16.8 g/dL (12.0-15.0); Mean Corpuscular HGB Conc 33.5 g/dl (32-36); Mean Corpuscular Hemoglobin 30.9 pg (26-34); Mean Corpuscular Volume 92.3 fl (80-100); Platelet Count Result 348 k/mm3 (150-375); Red Blood Count 5.44 M/mm3 (4.2-5.4); Red Cell Distribution Width 13.7 % (11.5-14.5); White Blood Count 14.7 K/mm3 (4.5-10.0)
[2023-05-23 08:30] LABS: Alanine Aminotransferase 44 U/L (6-35); Albumin Level 3.8 g/dL (3.5-5.1); Alkaline Phosphatase 94 U/L (38-126); Anion Gap 10 mmol/L (8-16); Aspartate Amino Transferase 56 U/L (14-36); Blood Urea Nitrogen 9 mg/dL (7-17); Carbon Dioxide 20 mmol/L (22-30); Chloride 101 mmol/L (98-107); Estimated CRCL calculation 78 ml/min; Estimated Glomerular Filt Rate > 60; Glucose 84 mg/dL (65-110); Magnesium 1.7 mg/dL (1.6-2.3); Potassium 3.5 mmol/L (3.4-5.0); Sodium 131 mmol/L (137-145)
--- NOTE | 2023-05-23 08:46 | PM.PNGS ---
Progress Note: A&P Assessment and Plan (1) Vomiting: Qualifiers: Nausea presence: with nausea Vomiting type: unspecified Qualified Code(s): R11.2 - Nausea with vomiting, unspecified Code(s): R11.10 - Vomiting, unspecified Status: Acute Assessment and Plan: Recurred yesterday. Patient reveals that she has always had a very queasy stomach and vomits easily. She specifically denies any right upper quadrant pain or epigastric pain. She does notice adult upper abdominal soreness but it is usually associated with having vomited. She does not really have much pain at the incision sites or in the right lower quadrant. She really liked having her Ativan last night. It allowed her to sleep and she feels much better this morning. She has specifically asked me to make sure that her Dilaudid Ativan and antiemetic were available on a p.r.n. basis. Her abdominal exam and current subjective status suggest it would be appropriate to try some liquids again. We will start off with clear liquids but can be advanced later today to fulls assuming she tolerates. She also has her sumatriptan available in case she gets a migraine headache. White blood cell count increased today. Does not appear to have an infection. Will recheck again tomorrow along with repeated BMP. (2) Status post appendectomy: Code(s): Z90.49 - Acquired absence of other specified parts of digestive tract Status: Acute Assessment and Plan: Five days status post laparoscopic appendectomy. The surgery seemed to be uneventful and no complications of the surgery noted on CT scan. Pathology came back and did show acute appendicitis. (3) Abnormal findings on imaging of biliary tract: Code(s): R93.2 - Abnormal findings on diagnostic imaging of liver and biliary tract Status: Acute Assessment and Plan: Concern raised on CT scan that she might have cholecystitis with gallstones. While I would say that this is not completely out of the question, her lack of pain and negative abdominal exam make this less likely. HIDA scan is likely to be positive as patient has had some much vomiting and poor appetite. I do not know that it would be very helpful although we may end up getting a HIDA scan if she does not turn around. Also consider GI consultation. Subjective Subjective Date/Time Seen: 05/23/23 08:46 Patient reports: feels better, pain is less (No abdominal pain), tolerating liquids well (Has only had sips of water since noon yesterday.), vomiting (Multiple times yesterday but none since noon yesterday) and afebrile Interval history: Patient had a rough day yesterday. She woke up feeling pretty good but then when she took full liquids she developed nausea and vomiting. She then got a migraine headache. A combination of Dilaudid and antiemetic as well as later some 2 mg of lorazepam really helped her feel better and sleep. Today she again feels good. She is afraid of having another day like yesterday. She would like to start off very slow with just some clear liquids. Review of Systems Review of Systems: All systems reviewed & are unremarkable except as noted in HPI and below (HPI and those items noted below) Constitutional: Constitutional: Denies chills and Denies fever(s) Cardiovascular: Cardiovascular: Denies chest pain, Denies diaphoresis, Denies dyspnea and Denies paroxysmal nocturnal dyspnea Respiratory: Respiratory: Denies chest congestion, Denies cough and Denies dyspnea Integumentary/Breasts: Skin/Breast: Denies lesions and Denies rash Exam Const: General: comfortable, no acute distress, alert and awake Orientation/consciousness: patient oriented x3 GI: Inspection: non-distended and incision (Dry and healing well, adhesive dressing intact) GI Palp: Yes Soft to palpation, No Tenderness to palpation present (GI) (Specifically no right upper quadrant tenderness), No Guarding due to palpation present (GI) and No
[2023-05-23] MEDS: KCL 40 MEQ/0.9% SOD CHL 1,000 ML 80 ML IV CONT ×2 (08:58→20:47)
[2023-05-23] MEDS: LOSARTAN POTASSIUM 50 MG TABLET PO (09:05)
[2023-05-23] MEDS: ENOXAPARIN 40 MG/0.4 ML SYRINGE SUB-Q (09:05)
[2023-05-23] MEDS: ATORVASTATIN 10 MG TABLET PO (09:05)
[2023-05-23] MEDS: THERAPEUTIC MULTIVITAMINS/MINERALS TAB (*BKC) 1 TABLET PO (09:05)
[2023-05-23] MEDS: FAMOTIDINE 20 MG TABLET PO ×2 (09:06→20:43)
[2023-05-23] MEDS: LORATADINE 10 MG TABLET PO (09:06)
[2023-05-23] MEDS: FLUTICASONE PROPIONATE 0.05% NA SPR 16 GM BTL (*BKC) 1 SPRAY NASAL (09:09)
[2023-05-23] MEDS: ACETAMINOPHEN 325 MG TABLET 650 MG PO (10:25)
--- NOTE | 2023-05-23 16:42 | PM.IMPN ---
Progress Note: A&P Assessment and Plan (1) Vomiting: Qualifiers: Nausea presence: with nausea Vomiting type: unspecified Qualified Code(s): R11.2 - Nausea with vomiting, unspecified Code(s): R11.10 - Vomiting, unspecified Status: Acute (2) Acute appendicitis: Code(s): K35.80 - Unspecified acute appendicitis Status: Resolved (3) Status post appendectomy: Code(s): Z90.49 - Acquired absence of other specified parts of digestive tract Status: Acute (4) Abnormal findings on imaging of biliary tract: Code(s): R93.2 - Abnormal findings on diagnostic imaging of liver and biliary tract Status: Acute (5) Hypertension: Code(s): I10 - Essential (primary) hypertension Status: Acute (6) Polycythemia: Code(s): D75.1 - Secondary polycythemia Status: Acute (7) Elevated transaminase level: Code(s): R74.01 - Elevation of levels of liver transaminase levels Status: Acute (8) Hyponatremia: Code(s): E87.1 - Hypo-osmolality and hyponatremia Status: Acute (9) Tobacco abuse: Code(s): Z72.0 - Tobacco use Status: Acute Plan Patient presented initially with a 2 day hx of nausea and vomiting. CT scan showing early appendicitis and she underwent laparoscopic appendectomy. She was discharged on 05/19 but returned the following day for nausea and vomiting. WBC was trending down but now higher today. Lipase normal on admission. AST/ALT mildly elevated and trending down; elevated not high enough to stop the Lipitor. Repeat CT scan now showing pericholecystic fluid and RUQ US with mild GB thickening. She feels much better. Nausea is resolving. She remains on IV fluids and full liquid diet. Polycythemia related to tobacco use. Advance diet per GenSurg recommendations. Will follow from afar. Please call if other issues arise. Will sign off. Subjective Date/time seen: 05/23/23 16:42 Interval history: 63yo female with HTN, HLD and BOBBY here for nausea and vomiting 2 days after having a laproscopic appendectomy. Feels well. No n/v. Tolerating current diet. No abd pain. Small BM yesterday. Exam Narrative: AF 97.6 100/70 102 16 96% ra Gen - NARD Chest - CTA bilaterally, nml RR CV - RRR S1/S2 Abd - Soft, NT/ND, Positive BS, small laparoscopic incisions area clean/dry/itact Ext - No pedal edema Psych - Nml mood and affect Skin - Warm and dry Objective Data Vital Signs Vital Signs: Vital Signs - 24 hr 05/22/23 19:48 05/22/23 20:00 05/22/23 21:08 Temperature 96.4 F L Pulse Rate 104 H Respiratory Rate 18 Blood Pressure 197/123 H 163/125 H 163/125 H Pulse Oximetry 99 Oxygen Delivery 05/22/23 20:00 05/22/23 21:15 05/23/23 00:21 Temperature 96.4 F L Pulse Rate 104 H 104 H Respiratory Rate 18 20 Blood Pressure 214/135 H 144/86 H Pulse Oximetry 99 99 Oxygen Delivery Room Air 05/23/23 00:00 05/22/23 19:31 05/23/23 04:00 Temperature 96.4 F L 96.7 F L Pulse Rate 104 H 113 H Respiratory Rate 20 20 Blood Pressure 144/86 H 163/125 H 144/107 H Pulse Oximetry 99 96 Oxygen Delivery Room Air 05/23/23 04:00 05/23/23 07:59 05/23/23 08:00 Temperature 97.5 F L Pulse Rate 104 H Respiratory Rate 16 Blood Pressure 144/107 H 102/83 111/83 Pulse Oximetry 98 Oxygen Delivery 05/23/23 12:00 05/23/23 13:09 Temperature 97.6 F Pulse Rate 102 H Respiratory Rate 16 Blood Pressure 97/74 L 100/70 Pulse Oximetry 96 Oxygen Delivery Intake/Output Intake/Output: Intake & Output 05/20/23 05/21/23 05/22/23 05/23/23 23:59 23:59 23:59 23:59 Intake Total 4200 3340 2270 2030 Output Total 100 Balance 4100 3340 2270 2030 Meds/Results Medications: Active Medications Generic Name Dose Route Start Last Admin Trade Name Freq PRN Reason Stop Dose Admin Acetaminophen 650 mg 05/23/23 10:18 05/23/23 10:25 Acetaminophen 325 Mg Tablet PO 650 mg Q6H PRN
[2023-05-24] VITALS: BP 100/67; PULSE 79; RESP 18; TEMP 36.6; O2SAT 96
[2023-05-24 04:00] VITALS: BP 106/79; PULSE 87; RESP 16; TEMP 35.8; O2SAT 100
[2023-05-24] MEDS: LEVOTHYROXINE SODIUM 50 MCG TABLET PO (05:47)
[2023-05-24 08:00] VITALS: BP 106/78; PULSE 74; RESP 12; TEMP 36.9; O2SAT 96
[2023-05-24] MEDS: LORATADINE 10 MG TABLET PO (09:45)
[2023-05-24] MEDS: FLUTICASONE PROPIONATE 0.05% NA SPR 16 GM BTL (*BKC) 1 SPRAY NASAL (09:45)
[2023-05-24] MEDS: ATORVASTATIN 10 MG TABLET PO (09:45)
[2023-05-24] MEDS: THERAPEUTIC MULTIVITAMINS/MINERALS TAB (*BKC) 1 TABLET PO (09:45)
[2023-05-24] MEDS: LOSARTAN POTASSIUM 50 MG TABLET PO (09:45)
[2023-05-24] MEDS: FAMOTIDINE 20 MG TABLET PO (09:45)
[2023-05-24 12:00] VITALS: BP 105/71; PULSE 87; RESP 14; TEMP 36.6; O2SAT 97
--- NOTE | 2023-05-24 15:47 | PM.DS ---
DS: Admitting Diagnosis Discharge Date 05/24/2023 Admitting Diagnosis Intractable nausea and vomiting History recent appendectomy Abnormal biliary imaging Dehydration DS: Discharge Diagnosis Discharge Diagnosis (1) Vomiting: Qualifiers: Nausea presence: with nausea Vomiting type: unspecified Qualified Code(s): R11.2 - Nausea with vomiting, unspecified Code(s): R11.10 - Vomiting, unspecified Status: Resolved Assessment and Plan: Etiology unclear. Could have been due to narcotic pain medication or anxiety. Patient tells me she has always had a sensitive stomach and often gets nausea and vomiting with very little provocation. This was never accompanied by any significant abdominal pain either before the vomiting or after. (2) Status post appendectomy: Code(s): Z90.49 - Acquired absence of other specified parts of digestive tract Status: Acute Assessment and Plan: Pathology showed acute appendicitis as expected (3) Abnormal findings on imaging of biliary tract: Code(s): R93.2 - Abnormal findings on diagnostic imaging of liver and biliary tract Status: Acute Assessment and Plan: Admitting CT scan suspicious for gallbladder inflammation, cholecystitis and did show gallstones. Clinical history not really consistent with this. Exam not consistent with this either. (4) Hypokalemia due to excessive gastrointestinal loss of potassium: Code(s): E87.6 - Hypokalemia Status: Resolved Assessment and Plan: Patient given supplemental potassium and this resolved by discharge. Almost certainly due to the protracted vomiting both before her appendectomy and soon after discharge. (5) Tobacco abuse: Code(s): Z72.0 - Tobacco use Status: Chronic (6) Polycythemia: Code(s): D75.1 - Secondary polycythemia Status: Chronic (7) Elevated transaminase level: Code(s): R74.01 - Elevation of levels of liver transaminase levels Status: Acute Assessment and Plan: Mild abnormalities of ALT and AST. Would favor gallbladder problems but no clinical history or exam findings to suggest this. Could also be caused by protracted vomiting. DS: Summary Hospital Course Hospital Course: Patient initially presented to the emergency room on 05/18/2023. At that time she had had 2 days of protracted nausea and vomiting as her major complaint. She also noted diffuse abdominal pain[place] [id number] and her abdominal pain came to focus more in the right lower quadrant. She was taken to surgery on 05/18/2023 fairly late in the afternoon or early evening and unremarkable laparoscopic appendectomy was performed. She appeared to have acute appendicitis. She was observed overnight and felt much better the next morning, 05/19/2023. She had no pain no nausea or vomiting it was quite anxious to go home. She was discharged on 05/19/2023. She did well initially but then the next day 05/20/23 she has started having nausea and vomiting again. She did develop some mild abdominal pain but her main complaint was nausea and vomiting. She came to the emergency room. [place] [id number]. She had some hyponatremia and hypokalemia. She was admitted and given IV fluids and antiemetics. She only received ice chips on 05/21/2023. By the next day, she was feeling better and she was started on full liquids. She then had several problems. The vomiting returned and was quite protracted. She developed a migraine headache which often causes her to have nausea and vomiting. She eventually received Dilaudid, promethazine, and lorazepam. This seemed to do the trick and she quit vomiting and eventually was able to sleep through the night. On 05/23/2023 she was feeling much better. She had not had any vomiting since noon the previous day. She was very weak leery of a recurrence of the vomiting and headache from the previous day
== END 2023-05-24 16:40 | disposition home or self-care (01) ==
LOC: ANHED 11:55 → ANH3MEDSUR 12:56
PROVIDERS: Nurse Practitioner Family; Admitting Provider Surgery; Emergency Provider Emergency Medicine; Visit Provider Surgery
DX: R11.2 Nausea with vomiting, unspecified (principal); Z90.49 Acquired absence of other specified parts of digestive tract; R93.2 Abnormal findings on diagnostic imaging of liver and biliary tract; D75.1 Secondary polycythemia; R74.01 Elevation of levels of liver transaminase levels; E87.6 Hypokalemia; E87.1 Hypo-osmolality and hyponatremia; R63.0 Anorexia; Z68.23 Body mass index [BMI] 23.0-23.9, adult; G43.909 Migraine, unspecified, not intractable, without status migrainosus; E78.5 Hyperlipidemia, unspecified; I10 Essential (primary) hypertension; E03.9 Hypothyroidism, unspecified; G47.33 Obstructive sleep apnea (adult) (pediatric); F12.90 Cannabis use, unspecified, uncomplicated; Z79.1 Long term (current) use of non-steroidal anti-inflammatories (NSAID); Z87.891 Personal history of nicotine dependence
CPT/HCPCS: 36415; 74177; 76705; 80053; 81003; 83690; 83735; 85025; 85027; 96361; 96365; 96366; 96367; 96375; 96376; 99285; A9270; G0378; J1170; J1200; J1650; J2060; J2405; J2543; J2550; J3480; J7030; J7040; J7120; Q9967

== ENCOUNTER 2023-06-05 16:57 | Emergency (ER) | payer OTHER, SELFPAY ==
[2023-06-05 17:08] VITALS: BP 147/97; PULSE 80; RESP 18; TEMP 36.7; O2SAT 100
[2023-06-05 19:41] VITALS: BP 139/87; PULSE 78; RESP 18; O2SAT 100
--- NOTE | 2023-06-05 19:42 | ED.WOUNDLAC ---
HPI - Wound/Laceration General Chief Complaint: Wound/Laceration Stated Complaint: wound Time Seen by Provider: 06/05/23 19:37 History of Present Illness HPI narrative: Pt had recent appendectomy. Pt says the incision form the surgery is along her waistband and it is getting rubbed and she is concerned it's infected. Pt says it is red and has a little drainage. Pt denies fever or chills. Related Data Home Medications Medication Instructions Recorded Confirmed atorvastatin 10 mg tablet 10 mg PO DAILY 05/18/23 05/20/23 levothyroxine 50 mcg tablet 50 mcg PO DAILY 05/18/23 05/20/23 losartan 50 mg tablet 50 mg PO DAILY 05/18/23 05/20/23 calcium carb-vit D3-minerals 600 1 tablet PO DAILY 05/20/23 05/20/23 mg calcium-400 unit tablet cetirizine 10 mg tablet (Zyrtec) 10 mg PO DAILY 05/20/23 05/20/23 fluticasone propionate 50 1 spray intranasal DAILY 05/20/23 05/20/23 mcg/actuation nasal spray,suspension multivitamin with minerals-folic 1 tablet PO DAILY 05/20/23 05/20/23 acid 0.4 mg tablet sumatriptan succinate 50 mg tablet 50 mg PO PRN PRN Migraine Headache 05/20/23 05/20/23 Allergies Allergy/AdvReac Type Severity Reaction Status Date / Time No Known Allergies Allergy Verified 06/05/23 19:39 Review of Systems Review of Systems: All systems reviewed & are unremarkable except as noted in HPI and below PMFSH Past Medical History Medical History (Updated 06/05/23 @ 19:45 by Tyrell Vargas III, DO) Hyperlipidemia Hypertension Hypothyroidism BOBBY (obstructive sleep apnea) Social History Social History Smoking status: Former smoker Smoking end date: 05/18/23 Alcohol intake: current Drinks per week: 28 Alcohol use details: 4/beers day Substance use: current Substance use type: marijuana Other substance usage details: daily Last use: 05/18/23 Lack of Transportation: No Lack of Food: Never True Current Housing: I Have Housing Concerned About Future Housing: No Difficulty Paying Gas/Electric Bills: No Difficulty Paying for Meds: No Currently Unemployed: No Education: Bachelor's Degree Difficulty w/ Childcare or Family Care: No Living arrangements: with family Spiritual care concerns: No Exam Const: General: healthy appearing Nutritional Appearance: well nourished Orientation/consciousness: patient oriented x3 Limitations: no limitations Resp: Effort & Inspection: normal respiratory effort Auscultation: clear to auscultation bilaterally Cardio: Rate: regular rate Rhythm: regular rhythm GI: GI Palp: Yes Soft to palpation and No Tenderness to palpation present (GI) Auscultation: normal bowel sounds Skin: Other: very minimal erythema around laparacopy wound lower abdomen no abscess or drainage Neuro: General: patient oriented x3, moves all extremities and no meningeal signs Extrem: General: normal to inspection and no clubbing, cyanosis or edema Psych: Mental Status: mental status grossly normal Affect: normal affect Attitude: cooperative Course Vital Signs Vital signs: Vital Signs Temperature 98.0 F 06/05/23 17:08 Pulse Rate 80 06/05/23 17:08 Respiratory Rate 18 06/05/23 17:08 Blood Pressure 147/97 H 06/05/23 17:08 Pulse Oximetry 100 06/05/23 17:08 Oxygen Delivery Room Air 06/05/23 17:08 Temperature 98.0 F 06/05/23 17:08 Pulse Rate 78 06/05/23 19:41 Respiratory Rate 18 06/05/23 19:41 Blood Pressure 139/87 06/05/23 19:41 Pulse Oximetry 100 06/05/23 19:41 Oxygen Delivery Room Air 06/05/23 17:08 Discharge Plan Discharge Clinical Impression: Cellulitis Patient Disposition: Home, Self-Care Condition: Stable Instructions: Antibiotic Form, Cellulitis (ED) Prescriptions: New doxycycline monohydrate 100 mg capsule 100 mg PO BID Qty: 20 0RF No Action losartan 50 mg tablet 50 mg PO DAILY atorvastatin 10 mg tabl
== END 2023-06-05 20:13 | disposition home or self-care (01) ==
PROVIDERS: Emergency Provider Emergency Medicine
DX: T81.41XA Infection following a procedure, superficial incisional surgical site, initial encounter (principal); L03.311 Cellulitis of abdominal wall; E78.5 Hyperlipidemia, unspecified; I10 Essential (primary) hypertension; E03.9 Hypothyroidism, unspecified; G47.33 Obstructive sleep apnea (adult) (pediatric); Z87.891 Personal history of nicotine dependence; Y83.6 Removal of other organ (partial) (total) as the cause of abnormal reaction of the patient, or of later complication, without mention of misadventure at the time of the procedure
CPT/HCPCS: 99283